=== PATIENT | male | born 1955 | race Caucasian/White ===

== ENCOUNTER 2023-09-13 15:56 | Inpatient (IN) | payer MEDICARE, OTHER ==
[~2023-09-13] VITALS: Ht 182.9 cm; Wt 79.8 kg
[2023-09-13] MEDS ORDERED: ACET325C7 PO (16:08)
[2023-09-13] MEDS ORDERED: VALP250S3 PO (16:08)
[2023-09-13] MEDS ORDERED: LORA0.5T48 PO (16:08)
[2023-09-13] MEDS ORDERED: HYDR50CA PO (16:08)
[2023-09-13] MEDS ORDERED: SULF1TAB48 PO (16:08)
[2023-09-13 16:26] LABS: BASOPHILS # (AUTO) 0.1 K/UL (0.0-0.2); BASOPHILS % (AUTO) 0.7 % (0.0-2.0); EOSINOPHILS # (AUTO) 0.1 K/uL (0.0-0.7); EOSINOPHILS % (AUTO) 0.6 % (0.0-7.0); HEMOGLOBIN 12.8 g/dL (12.5-16.3); LYMPHOCYTES # (AUTO) 0.7 K/uL (0.8-4.8); LYMPHOCYTES % (AUTO) 7.7 % (20.5-51.5); MEAN CORPUSCULAR HEMOGLOBIN 31.5 uug (23.8-33.4); MEAN CORPUSCULAR HGB CONC 33 g/dL (32.5-36.3); MEAN CORPUSCULAR VOLUME 96.2 fL (73.0-96.2); MONOCYTES # (AUTO) 0.3 K/uL (0.1-1.30); MONOCYTES % (AUTO) 3.6 % (0.0-11.0); NEUTROPHILS # (AUTO) 8.1 K/uL (1.8-8.9); NEUTROPHILS % (AUTO) 87.4 % (38.5-71.5); PLATELET COUNT (AUTO) 241 K/uL (152-348); RED BLOOD CELL COUNT(AUTO) 4.06 MIL/uL (4.06-5.63); RED CELL DISTRIBUTION WIDTH 13.9 % (12.1-16.2); WHITE BLOOD COUNT (AUTO) 9.3 K/uL (3.6-10.2)
[2023-09-13 16:29] LABS: DIFFERENTIAL COMMENT 1
[2023-09-13 16:34] LABS: CARBON DIOXIDE 27 mmol/L (21-32); CHLORIDE 103 mmol/L (98-107); CREATININE 1.4 mg/dL (0.6-1.3); GLUCOSE 115 mg/dL (74-106); POTASSIUM 4.9 mmol/L (3.5-5.1); SODIUM SERUM 141 mmol/L (136-145); UREA NITROGEN, BLOOD 27 mg/dL (7-18)
[2023-09-13 16:41] LABS: ALANINE AMINOTRANSFERASE 31 U/L (16-63); ALBUMIN 3.2 g/dL (3.4-5.0); ALKALINE PHOSPHATASE 50 U/L (50-136); ASPARTATE AMINOTRANSFERASE 27 U/L (15-37); BILIRUBIN,DIRECT 0.1 mg/dL (0.0-0.2); BILIRUBIN,TOTAL 0.5 mg/dL (0.2-1.0); CALCIUM 8.4 mg/dL (8.5-10.1); TOTAL PROTEIN, SERUM 6.8 g/dL (6.4-8.2)
[2023-09-13 16:54] LABS: ETHANOL < 3 MG/DL (0-10)
[2023-09-13 17:01] LABS: *BILIRUBIN,URIN NEGATIVE (NEGATIVE); *BLOOD, URINE NEGATIVE (NEGATIVE); *CLARITY,URINE CLEAR (CLEAR); *COLOR,URINE YELLOW (YELLOW); *KETONES,URINE TRACE (NEGATIVE); *PROTEIN,URINE NEGATIVE (NEGATIVE); LEUKOCYTE ESTERASE ,URINE NEGATIVE (NEGATIVE); NITRITE, URINE NEGATIVE (NEGATIVE); PH,URINE 6.5 (5.0-8.0); UGLUCOSE NEGATIVE (NEGATIVE)
[2023-09-13 17:23] LABS: *AMPHETAMINE, URINE NEGATIVE (NEGATIVE); *BARBITURATE, URINE NEGATIVE (NEGATIVE); *BENZODIAZEPINE, URINE NEGATIVE (NEGATIVE); *CANNABINOID, URINE NEGATIVE (NEGATIVE); *COCCAINE, URINE NEGATIVE (NEGATIVE); *OPIATE, URINE NEGATIVE (NEGATIVE); *PHENCYCLIDINE SCREEN,URINE NEGATIVE (NEGATIVE)
[2023-09-13 17:28] LABS: FENTANYL, URINE NEGATIVE (NEGATIVE)
[2023-09-13 22:20] VITALS: BP 101/69; TEMP 98.1; O2SAT 98
[2023-09-14] MEDS ORDERED: MAGNESIUM HYDROXIDE 30 ML LIQUID UDC PO PRN (00:15)
[2023-09-14] MEDS ORDERED: MAG HYDROX/AL HYDROX/SIMETH 30 ML LIQUID UDC PO PRN (00:15)
[2023-09-14] MEDS: TEMAZEPAM 7.5 MG CAPSULE PO PRN (02:12)
[2023-09-14] MEDS: LORAZEPAM 0.5 MG TABLET PO PRN (03:50)
[2023-09-14 08:06] VITALS: BP 121/72; TEMP 98; O2SAT 99
[2023-09-14] MEDS: DIVALPROEX SPRINKLE 125 MG CAP.SPRINK PO SCH (12:42)
[2023-09-14] MEDS: risperiDONE 1 MG TABLET PO SCH (12:42)
[2023-09-14 15:35] VITALS: BP 125/46; TEMP 98; O2SAT 99
[2023-09-14 19:53] VITALS: BP 113/67; TEMP 98.4; O2SAT 96
[2023-09-15 08:14] VITALS: BP 115/76; TEMP 97.4; O2SAT 97
[2023-09-15 08:25] LABS: GLUCOSE FASTING 81 mg/dL (70-115); VALPROIC ACID 69 ug/mL (50-100)
[2023-09-15 17:00] VITALS: BP 107/57; TEMP 97.6; O2SAT 97
[2023-09-15] MEDS: TEMAZEPAM 7.5 MG CAPSULE PO PRN (22:00)
[2023-09-16 07:53] VITALS: BP 128/81; TEMP 97.2; O2SAT 100
[2023-09-16 16:53] VITALS: BP 99/69; TEMP 98.3; O2SAT 99
[2023-09-16] MEDS: risperiDONE 1 MG TABLET PO SCH (17:18)
[2023-09-16 20:00] VITALS: BP 128/77; TEMP 97.7; O2SAT 99
[2023-09-17] MEDS: ACETAMINOPHEN 325 MG TABLET PO PRN (00:13)
[2023-09-17 08:05] VITALS: BP 108/54; TEMP 97.9; O2SAT 98
[2023-09-17] MEDS: risperiDONE 1 MG TABLET PO SCH (12:50)
[2023-09-17 13:14] LABS: THYROID STIMULATING HORMONE 1.192 mIU/mL (0.358-3.740)
[2023-09-17 15:54] VITALS: BP 99/66; TEMP 97.8; O2SAT 97
[2023-09-17 20:03] VITALS: BP 97/56; TEMP 97.8; O2SAT 100
[2023-09-18 07:10] LABS: FOLATE (FOLIC ACID), SERUM 12.8 ng/mL (>3.0)
[2023-09-18 07:30] VITALS: BP 110/66; TEMP 98.2; O2SAT 99
[2023-09-18 08:46] LABS: BASOPHILS # (AUTO) 0.1 K/UL (0.0-0.2); BASOPHILS % (AUTO) 0.9 % (0.0-2.0); EOSINOPHILS # (AUTO) 0.3 K/uL (0.0-0.7); EOSINOPHILS % (AUTO) 3.9 % (0.0-7.0); HEMATOCRIT 39.6 % (36.7-47.1); HEMOGLOBIN 13.1 g/dL (12.5-16.3); LYMPHOCYTES % (AUTO) 14.3 % (20.5-51.5); MEAN CORPUSCULAR HEMOGLOBIN 31.9 uug (23.8-33.4); MEAN CORPUSCULAR HGB CONC 33 g/dL (32.5-36.3); MEAN CORPUSCULAR VOLUME 96.4 fL (73.0-96.2); MONOCYTES # (AUTO) 0.6 K/uL (0.1-1.30); MONOCYTES % (AUTO) 7.9 % (0.0-11.0); NEUTROPHILS # (AUTO) 5.2 K/uL (1.8-8.9); PLATELET COUNT (AUTO) 283 K/uL (152-348); RED BLOOD CELL COUNT(AUTO) 4.11 MIL/uL (4.06-5.63); RED CELL DISTRIBUTION WIDTH 13.7 % (12.1-16.2); WHITE BLOOD COUNT (AUTO) 7.2 K/uL (3.6-10.2)
[2023-09-18 08:51] LABS: DIFFERENTIAL COMMENT 1
[2023-09-18 09:00] LABS: ALBUMIN 3.3 g/dL (3.4-5.0); BILIRUBIN,TOTAL 0.6 mg/dL (0.2-1.0); CALCIUM 8.7 mg/dL (8.5-10.1); CREATININE 0.9 mg/dL (0.6-1.3); PHOSPHOROUS 3.1 mg/dL (2.5-4.9); POTASSIUM 3.9 mmol/L (3.5-5.1); TOTAL PROTEIN, SERUM 7.2 g/dL (6.4-8.2)
[2023-09-18 15:15] VITALS: BP 118/70; TEMP 98.2; O2SAT 99
[2023-09-18] MEDS: DIVALPROEX SPRINKLE 125 MG CAP.SPRINK PO SCH (17:05)
[2023-09-18 20:00] VITALS: BP 127/79; TEMP 98.4; O2SAT 97
[2023-09-19 08:00] VITALS: BP 119/71; TEMP 97.8; O2SAT 97
[2023-09-19 16:00] VITALS: BP 118/73; TEMP 98.8; O2SAT 98
[2023-09-19 20:06] VITALS: BP 122/76; TEMP 97.9; O2SAT 96
[2023-09-20 08:07] VITALS: BP 111/61; TEMP 97.8; O2SAT 96
[2023-09-20] MEDS: ENSURE ENLIVE (VAN) 240 ML LIQUID PO SCH (11:00)
[2023-09-20] MEDS: DIVALPROEX SPRINKLE 125 MG CAP.SPRINK PO SCH (13:25)
[2023-09-20 15:01] VITALS: BP 114/67; TEMP 98; O2SAT 98
[2023-09-20 15:11] VITALS: BP 114/67; TEMP 98; O2SAT 98
[2023-09-20] MEDS: OLANZAPINE 10 MG VIAL IM ONE (16:03)
[2023-09-20 20:10] VITALS: BP 124/74; TEMP 98.1; O2SAT 96
[2023-09-21 07:30] VITALS: BP 149/80; TEMP 97.8; O2SAT 98
[2023-09-21] MEDS ORDERED: risperiDONE 1 MG/ML UDC PO SCH (17:00)
[2023-09-21] MEDS: risperiDONE 1 MG TABLET PO SCH (17:03)
[2023-09-21 20:04] VITALS: BP 146/78; TEMP 98.2; O2SAT 96
[2023-09-21] MEDS: risperiDONE 2 MG TABLET PO SCH (20:56)
[2023-09-22 07:50] VITALS: BP 117/62; TEMP 98.2; O2SAT 98
[2023-09-22 08:05] LABS: CALCIUM 8.6 mg/dL (8.5-10.1)
[2023-09-22 16:18] VITALS: BP 127/75; TEMP 98.1; O2SAT 98
[2023-09-22 20:05] VITALS: BP 119/63; TEMP 98; O2SAT 98
[2023-09-23 08:23] LABS: CALCIUM 8.6 mg/dL (8.5-10.1); CREATININE 0.9 mg/dL (0.6-1.3); POTASSIUM 4.2 mmol/L (3.5-5.1)
[2023-09-23 08:35] VITALS: BP 96/54; TEMP 98.2; O2SAT 97
[2023-09-23 16:34] VITALS: BP 116/75; TEMP 98.1; O2SAT 97
[2023-09-23 19:55] VITALS: BP 100/62; TEMP 98.1; O2SAT 100
[2023-09-24 07:51] VITALS: BP 101/56; TEMP 98.4; O2SAT 97
[2023-09-24 15:37] VITALS: BP 120/77; TEMP 97.6; O2SAT 97
[2023-09-24 19:57] VITALS: BP 118/66; TEMP 98.1; O2SAT 96
[2023-09-25 08:04] VITALS: BP 103/60; TEMP 98.2; O2SAT 96
== END 2023-09-25 12:00 | DRG 885 ==
LOC: ER 16:10 → GPS 22:00
PROVIDERS: ADMIT Psychiatry & Neurology Psychosomatic Medicine; ATTEND Nurse Practitioner Acute Care
DX: F25.1 Schizoaffective disorder, depressive type (principal); N17.9 Acute kidney failure, unspecified; N18.9 Chronic kidney disease, unspecified; G93.41 Metabolic encephalopathy; F03.94 Unspecified dementia, unspecified severity, with anxiety; F03.911 Unspecified dementia, unspecified severity, with agitation; E44.1 Mild protein-calorie malnutrition; G40.909 Epilepsy, unspecified, not intractable, without status epilepticus; J44.9 Chronic obstructive pulmonary disease, unspecified; S02.2XXD Fracture of nasal bones, subsequent encounter for fracture with routine healing; W18.30XD Fall on same level, unspecified, subsequent encounter; Z91.199 Patient's noncompliance with other medical treatment and regimen due to unspecified reason; Z91.148 Patient's other noncompliance with medication regimen for other reason; Z88.0 Allergy status to penicillin; M15.9 Polyosteoarthritis, unspecified; E88.09 Other disorders of plasma-protein metabolism, not elsewhere classified; Z68.23 Body mass index [BMI] 23.0-23.9, adult; M89.8X9 Other specified disorders of bone, unspecified site
CPT/HCPCS: 36415; 71045; 80164; 82746; 83735; 83921; 84100; 84443; 85025; 93005; C1758; G0480; J2358

== ENCOUNTER 2024-04-18 21:17 | Inpatient (IN) | payer MEDICARE, OTHER ==
[~2024-04-18] VITALS: Ht 193 cm; Wt 85.3 kg
[2024-04-18] MEDS: LIDOCAINE 2% (GLYDO= UROJET) 10 ML JELLY MM ONE (00:50)
[~2024-04-18 21:17] MED LIST: ACET325C7 PO; SULF1TAB48 PO
[2024-04-18] MEDS: IV NORMAL SALINE 500 ML BAG IV ONE (23:30)
[2024-04-18 23:36] LABS: BASOPHILS % (AUTO) 0.4 % (0.0-2.0); EOSINOPHILS # (AUTO) 0.3 K/uL (0.0-0.7); EOSINOPHILS % (AUTO) 4.1 % (0.0-7.0); HEMATOCRIT 39.6 % (36.7-47.1); HEMOGLOBIN 13.3 g/dL (12.5-16.3); MEAN CORPUSCULAR HEMOGLOBIN 32.5 uug (23.8-33.4); MEAN CORPUSCULAR HGB CONC 34 g/dL (32.5-36.3); MEAN CORPUSCULAR VOLUME 96.4 fL (73.0-96.2); MONOCYTES # (AUTO) 0.4 K/uL (0.1-1.30); MONOCYTES % (AUTO) 5.5 % (0.0-11.0); NEUTROPHILS # (AUTO) 4.3 K/uL (1.8-8.9); PLATELET COUNT (AUTO) 200 K/uL (152-348); RED CELL DISTRIBUTION WIDTH 14.6 % (12.1-16.2)
[2024-04-18 23:47] LABS: DIFFERENTIAL COMMENT 1
[2024-04-18 23:50] LABS: CALCIUM 8.4 mg/dL (8.5-10.1); CARBON DIOXIDE 28 mmol/L (21-32); CHLORIDE 108 mmol/L (98-107); CREATININE 1.1 mg/dL (0.6-1.3); GLUCOSE 81 mg/dL (74-106); POTASSIUM 4.3 mmol/L (3.5-5.1); SODIUM SERUM 145 mmol/L (136-145); UREA NITROGEN, BLOOD 27 mg/dL (7-18)
[2024-04-18 23:52] LABS: AMMONIA 28 umol/L (11-32)
[2024-04-18] MEDS: diphenhydrAMINE 50 MG/1 ML VIAL IV ONE (23:57)
[2024-04-18 23:58] LABS: ALANINE AMINOTRANSFERASE 18 U/L (16-63); ALBUMIN 3.4 g/dL (3.4-5.0); ALKALINE PHOSPHATASE 47 U/L (50-136); ASPARTATE AMINOTRANSFERASE 18 U/L (15-37); BILIRUBIN,DIRECT 0.1 mg/dL (0.0-0.2); BILIRUBIN,TOTAL 0.3 mg/dL (0.2-1.0); TOTAL PROTEIN, SERUM 8.6 g/dL (6.4-8.2)
[2024-04-19] LABS: ACETAMINOPHEN < 2.0 ug/mL (10-30)
[2024-04-19] MEDS ORDERED: diphenhydrAMINE 50 MG/1 ML VIAL ONE
[2024-04-19 00:03] LABS: THYROID STIMULATING HORMONE 3.317 mIU/mL (0.358-3.740)
[2024-04-19] MEDS ORDERED: DEXTROSE 50% 50 ML DISP.SYRIN ONE (00:17)
[2024-04-19] MEDS: DEXTROSE 50% 50 ML DISP.SYRIN IV ONE (00:20)
[2024-04-19] MEDS ORDERED: LIDOCAINE 2% (GLYDO= UROJET) 10 ML JELLY MM ONE (00:32)
[2024-04-19 01:26] LABS: *AMPHETAMINE, URINE NEGATIVE (NEGATIVE); *BARBITURATE, URINE NEGATIVE (NEGATIVE); *BENZODIAZEPINE, URINE NEGATIVE (NEGATIVE); *CANNABINOID, URINE NEGATIVE (NEGATIVE); *COCCAINE, URINE NEGATIVE (NEGATIVE); *OPIATE, URINE NEGATIVE (NEGATIVE); *PHENCYCLIDINE SCREEN,URINE NEGATIVE (NEGATIVE); FENTANYL, URINE NEGATIVE (NEGATIVE)
[2024-04-19 01:30] LABS: *BILIRUBIN,URIN NEGATIVE (NEGATIVE); *BLOOD, URINE NEGATIVE (NEGATIVE); *CLARITY,URINE CLEAR (CLEAR); *COLOR,URINE YELLOW (YELLOW); *KETONES,URINE NEGATIVE (NEGATIVE); *PROTEIN,URINE NEGATIVE (NEGATIVE); *UROBILINOGEN,URINE 0.2 E.U./dl (NORMAL); LEUKOCYTE ESTERASE ,URINE NEGATIVE (NEGATIVE); NITRITE, URINE NEGATIVE (NEGATIVE); UGLUCOSE TRACE (NEGATIVE)
[2024-04-19] MEDS ORDERED: OLANZAPINE 10 MG VIAL IM ONE (01:53)
[2024-04-19] MEDS: OLANZAPINE 10 MG VIAL IM ONE (02:03)
[2024-04-19 02:31] LABS: WBC,URINE 0-3 /HPF (0-3)
[2024-04-19 03:01] LABS: ETHANOL < 3 MG/DL (0-10)
[2024-04-19] MEDS ORDERED: HALOPERIDOL LACTATE 5 MG/1 ML VIAL ONE (03:35)
[2024-04-19] MEDS: HALOPERIDOL LACTATE 5 MG/1 ML VIAL IM ONE (03:51)
[2024-04-19] MEDS ORDERED: BENZ1TAB7 PO (04:16)
[2024-04-19] MEDS ORDERED: DIVA500T4 PO (04:16)
[2024-04-19] MEDS ORDERED: RISP0.5T65 PO (04:16)
[2024-04-19] MEDS ORDERED: MULT-1045 PO (04:16)
[2024-04-19] MEDS ORDERED: RISP2TAB85 PO (04:16)
[2024-04-19] MEDS ORDERED: ACET-3117 PO (04:16)
[2024-04-19] MEDS ORDERED: levoFLOXacin 500 MG/D5W 100 ML ONE (05:00)
[2024-04-19] MEDS: levoFLOXacin 500 MG/D5W 100ML PIGGYBACK IV ONE (05:01)
[2024-04-19] MEDS ORDERED: LORAZEPAM 2 MG/1 ML VIAL ONE (06:25)
[2024-04-19] MEDS: LORAZEPAM 2 MG/1 ML VIAL IV ONE (06:35)
[2024-04-19] MEDS ORDERED: DIVALPROEX 500 MG TABLET.DR PO ONE ×2 (08:35→18:40)
[2024-04-19] MEDS ORDERED: BENZTROPINE MESYLATE 0.5 MG TABLET ONE ×3 (08:36→18:45)
[2024-04-19] MEDS: BENZTROPINE MESYLATE 1 MG TABLET PO SCH (08:46)
[2024-04-19] MEDS: SULFAMETH/TRIMETH 800/160 MG TABLET PO SCH (08:46)
[2024-04-19] MEDS: DIVALPROEX ER 500 MG TAB.SR.24H PO SCH (08:47)
[2024-04-19] MEDS: MULTIVITAMINS,THERAPEUTIC TABLET PO SCH (08:47)
[2024-04-19] MEDS: risperiDONE 0.5 MG TABLET PO SCH (08:47)
[2024-04-19] MEDS ORDERED: SULFAMETH/TRIMETH 800/160 MG TABLET ONE (18:40)
[2024-04-19] MEDS ORDERED: risperiDONE 2 MG TABLET ONE (18:44)
[2024-04-19] MEDS: risperiDONE 2 MG TABLET PO SCH (18:47)
[2024-04-19 22:28] VITALS: BP 118/67; TEMP 97.8; O2SAT 100
[2024-04-19 23:23] VITALS: BP 135/82; TEMP 98; O2SAT 98
[2024-04-20 04:38] VITALS: BP 126/65; TEMP 97.8; O2SAT 99
[2024-04-20] MEDS: QUETIAPINE FUMARATE 25 MG TABLET PO ONE (05:33)
[2024-04-20] MEDS: BLOOD SUGAR DIAGNOSTIC 1 EACH STRIP VI SCH (06:32)
[2024-04-20 06:42] LABS: BASOPHILS % (AUTO) 0.4 % (0.0-2.0); EOSINOPHILS # (AUTO) 0.1 K/uL (0.0-0.7); EOSINOPHILS % (AUTO) 1.6 % (0.0-7.0); HEMATOCRIT 43.1 % (36.7-47.1); HEMOGLOBIN 14.8 g/dL (12.5-16.3); LYMPHOCYTES # (AUTO) 1.1 K/uL (0.8-4.8); LYMPHOCYTES % (AUTO) 12.4 % (20.5-51.5); MEAN CORPUSCULAR HEMOGLOBIN 32.8 uug (23.8-33.4); MEAN CORPUSCULAR HGB CONC 34 g/dL (32.5-36.3); MEAN CORPUSCULAR VOLUME 95.5 fL (73.0-96.2); MONOCYTES # (AUTO) 0.6 K/uL (0.1-1.30); MONOCYTES % (AUTO) 6.9 % (0.0-11.0); NEUTROPHILS % (AUTO) 78.7 % (38.5-71.5); PLATELET COUNT (AUTO) 198 K/uL (152-348); RED BLOOD CELL COUNT(AUTO) 4.52 MIL/uL (4.06-5.63); RED CELL DISTRIBUTION WIDTH 14.1 % (12.1-16.2); WHITE BLOOD COUNT (AUTO) 8.9 K/uL (3.6-10.2)
[2024-04-20 06:52] LABS: DIFFERENTIAL COMMENT 1
[2024-04-20 07:15] LABS: CALCIUM 8.6 mg/dL (8.5-10.1); PHOSPHOROUS 2.6 mg/dL (2.5-4.9); POTASSIUM 3.9 mmol/L (3.5-5.1)
[2024-04-20 07:16] LABS: MAGNESIUM 1.8 mg/dL (1.8-2.4)
[2024-04-20 07:40] VITALS: BP 123/96; TEMP 97.9; O2SAT 99
[2024-04-20] MEDS: risperiDONE 0.5 MG TABLET PO SCH (08:45)
[2024-04-20] MEDS: BENZTROPINE MESYLATE 1 MG TABLET PO SCH (08:45)
[2024-04-20] MEDS ORDERED: DIVA-78 PO (11:36)
[2024-04-20 12:02] VITALS: BP 111/67; TEMP 97.6; O2SAT 99
[2024-04-20] MEDS: DIVALPROEX 500 MG TABLET.DR PO SCH (12:46)
[2024-04-20 15:33] VITALS: BP 116/66; TEMP 97.6; O2SAT 99
[2024-04-20 16:00] VITALS: BP 123/79; TEMP 97.9; O2SAT 99
[2024-04-20 19:32] VITALS: BP 122/56; TEMP 98.2; O2SAT 98
[2024-04-20] MEDS: risperiDONE 2 MG TABLET PO SCH (20:27)
[2024-04-20] MEDS: CLONAZEPAM 0.5 MG TABLET PO PRN (23:06)
[2024-04-21 00:07] VITALS: BP 118/66; TEMP 97.9; O2SAT 99
[2024-04-21 05:13] VITALS: BP 120/59; TEMP 97.9; O2SAT 97
[2024-04-21] MEDS: HALOPERIDOL LACTATE 5 MG/1 ML VIAL IM PRN (05:35)
[2024-04-21 07:49] VITALS: BP 117/78; TEMP 97.8; O2SAT 99
[2024-04-21 07:52] LABS: BASOPHILS % (AUTO) 0.5 % (0.0-2.0); EOSINOPHILS # (AUTO) 0.1 K/uL (0.0-0.7); EOSINOPHILS % (AUTO) 1.6 % (0.0-7.0); HEMATOCRIT 41.2 % (36.7-47.1); HEMOGLOBIN 14.4 g/dL (12.5-16.3); LYMPHOCYTES # (AUTO) 1.2 K/uL (0.8-4.8); LYMPHOCYTES % (AUTO) 12.9 % (20.5-51.5); MEAN CORPUSCULAR HGB CONC 35 g/dL (32.5-36.3); MEAN CORPUSCULAR VOLUME 94.3 fL (73.0-96.2); MONOCYTES # (AUTO) 0.6 K/uL (0.1-1.30); MONOCYTES % (AUTO) 6.3 % (0.0-11.0); NEUTROPHILS # (AUTO) 7.1 K/uL (1.8-8.9); NEUTROPHILS % (AUTO) 78.7 % (38.5-71.5); PLATELET COUNT (AUTO) 208 K/uL (152-348); RED BLOOD CELL COUNT(AUTO) 4.37 MIL/uL (4.06-5.63)
[2024-04-21 08:00] LABS: CALCIUM 8.6 mg/dL (8.5-10.1); CREATININE 1.1 mg/dL (0.6-1.3); MAGNESIUM 1.8 mg/dL (1.8-2.4); PHOSPHOROUS 2.7 mg/dL (2.5-4.9); POTASSIUM 3.9 mmol/L (3.5-5.1)
[2024-04-21 08:09] LABS: DIFFERENTIAL COMMENT 1
[2024-04-21 11:33] VITALS: BP 113/71; TEMP 98; O2SAT 100
[2024-04-21 15:33] VITALS: BP_SYST 102; BP_SYST 122; BP_DIAS 57; BP_DIAS 65; TEMP 97.7; TEMP 97.9; O2SAT 99
[2024-04-21 19:30] VITALS: BP 131/59; TEMP 97.3; O2SAT 97
[2024-04-22 05:52] VITALS: BP 129/82; TEMP 97.8; O2SAT 96
[2024-04-22 06:57] LABS: BASOPHILS # (AUTO) 0.1 K/UL (0.0-0.2); BASOPHILS % (AUTO) 0.6 % (0.0-2.0); EOSINOPHILS # (AUTO) 0.1 K/uL (0.0-0.7); EOSINOPHILS % (AUTO) 1.4 % (0.0-7.0); HEMATOCRIT 42.2 % (36.7-47.1); HEMOGLOBIN 14.6 g/dL (12.5-16.3); LYMPHOCYTES # (AUTO) 1.2 K/uL (0.8-4.8); MEAN CORPUSCULAR HEMOGLOBIN 32.7 uug (23.8-33.4); MEAN CORPUSCULAR HGB CONC 35 g/dL (32.5-36.3); MEAN CORPUSCULAR VOLUME 94.5 fL (73.0-96.2); MONOCYTES # (AUTO) 0.6 K/uL (0.1-1.30); MONOCYTES % (AUTO) 7.4 % (0.0-11.0); NEUTROPHILS # (AUTO) 6.5 K/uL (1.8-8.9); NEUTROPHILS % (AUTO) 76.6 % (38.5-71.5); PLATELET COUNT (AUTO) 219 K/uL (152-348); RED BLOOD CELL COUNT(AUTO) 4.46 MIL/uL (4.06-5.63); RED CELL DISTRIBUTION WIDTH 14.3 % (12.1-16.2); WHITE BLOOD COUNT (AUTO) 8.5 K/uL (3.6-10.2)
[2024-04-22 07:09] LABS: CALCIUM 8.8 mg/dL (8.5-10.1); CREATININE 1.2 mg/dL (0.6-1.3); MAGNESIUM 1.9 mg/dL (1.8-2.4); PHOSPHOROUS 2.8 mg/dL (2.5-4.9); POTASSIUM 4.2 mmol/L (3.5-5.1)
[2024-04-22 08:17] LABS: DIFFERENTIAL COMMENT 1
[2024-04-22 12:00] VITALS: BP 120/76; TEMP 97.9; O2SAT 97
[2024-04-22 15:51] VITALS: BP 125/76; TEMP 97.8; O2SAT 96
[2024-04-23] MEDS: PERMETHRIN 5% CREAM 60 GM TUBE TP ONE (11:19)
[2024-04-23 15:58] VITALS: BP 110/60; TEMP 97.2; O2SAT 99
[2024-04-23 19:30] VITALS: BP 124/74; TEMP 98.1
[2024-04-24 04:00] VITALS: BP 139/85; TEMP 97.3
[2024-04-24 06:35] LABS: BASOPHILS % (AUTO) 0.7 % (0.0-2.0); EOSINOPHILS # (AUTO) 0.3 K/uL (0.0-0.7); EOSINOPHILS % (AUTO) 5.4 % (0.0-7.0); HEMATOCRIT 44.7 % (36.7-47.1); HEMOGLOBIN 15.4 g/dL (12.5-16.3); LYMPHOCYTES # (AUTO) 1.5 K/uL (0.8-4.8); LYMPHOCYTES % (AUTO) 28.3 % (20.5-51.5); MEAN CORPUSCULAR HEMOGLOBIN 32.7 uug (23.8-33.4); MEAN CORPUSCULAR HGB CONC 34 g/dL (32.5-36.3); MEAN CORPUSCULAR VOLUME 95.1 fL (73.0-96.2); MONOCYTES # (AUTO) 0.4 K/uL (0.1-1.30); MONOCYTES % (AUTO) 8.2 % (0.0-11.0); NEUTROPHILS # (AUTO) 3.1 K/uL (1.8-8.9); NEUTROPHILS % (AUTO) 57.4 % (38.5-71.5); PLATELET COUNT (AUTO) 210 K/uL (152-348); RED CELL DISTRIBUTION WIDTH 14.3 % (12.1-16.2); WHITE BLOOD COUNT (AUTO) 5.3 K/uL (3.6-10.2)
[2024-04-24 06:50] LABS: ALBUMIN 3.3 g/dL (3.4-5.0); BILIRUBIN,TOTAL 0.7 mg/dL (0.2-1.0); CALCIUM 8.7 mg/dL (8.5-10.1); CREATININE 1.1 mg/dL (0.6-1.3); MAGNESIUM 1.9 mg/dL (1.8-2.4); PHOSPHOROUS 3.1 mg/dL (2.5-4.9); POTASSIUM 4.1 mmol/L (3.5-5.1); TOTAL PROTEIN, SERUM 7.5 g/dL (6.4-8.2)
[2024-04-24 07:22] LABS: DIFFERENTIAL COMMENT 1
[2024-04-24] MEDS ORDERED: risperiDONE 0.5 MG TABLET PO SCH (09:00)
[2024-04-24] MEDS: risperiDONE 1 MG TABLET PO SCH (10:22)
[2024-04-24 11:22] VITALS: BP 132/49; TEMP 98; O2SAT 93
[2024-04-24] MEDS ORDERED: RISP1TAB7 PO (15:37)
[2024-04-24] MEDS ORDERED: CLON0.5T4 PO (15:37)
[2024-04-24] MEDS ORDERED: PANT40TA2 PO (15:37)
[2024-04-24] MEDS ORDERED: DIPH25CA83 PO (15:37)
== END 2024-04-24 18:20 | DRG 177 ==
LOC: ER 21:17 → TELE3 04-19 21:02 → MEDSURG3 04-21 10:59
PROVIDERS: ADMIT Nurse Practitioner Acute Care; ATTEND Student in an Organized Health Care Education/Training Program
DX: J15.69 Pneumonia due to other Gram-negative bacteria (principal); G92.8 Other toxic encephalopathy; E44.1 Mild protein-calorie malnutrition; F03.911 Unspecified dementia, unspecified severity, with agitation; F03.94 Unspecified dementia, unspecified severity, with anxiety; F03.918 Unspecified dementia, unspecified severity, with other behavioral disturbance; F03.93 Unspecified dementia, unspecified severity, with mood disturbance; D68.59 Other primary thrombophilia; F25.9 Schizoaffective disorder, unspecified; Z88.0 Allergy status to penicillin; Z78.1 Physical restraint status; F32.9 Major depressive disorder, single episode, unspecified; Z79.899 Other long term (current) drug therapy; G47.00 Insomnia, unspecified; M15.9 Polyosteoarthritis, unspecified; R21 Rash and other nonspecific skin eruption; Z86.69 Personal history of other diseases of the nervous system and sense organs; R00.1 Bradycardia, unspecified; Z68.22 Body mass index [BMI] 22.0-22.9, adult; N18.9 Chronic kidney disease, unspecified; E16.2 Hypoglycemia, unspecified; G40.909 Epilepsy, unspecified, not intractable, without status epilepticus; Z74.09 Other reduced mobility; E86.0 Dehydration; R79.89 Other specified abnormal findings of blood chemistry
CPT/HCPCS: 36415; 70450; 71045; 73562; 83735; 84100; 84443; 84484; 85025; 85730; 87040; A4606; A4663; C1758; G0378; G0480; J1200; J1630; J1956; J2060; J2358; J3490; J7040